=== PATIENT | female | born 2000 | race Asian ===

== ENCOUNTER 2022-04-21 11:33 | Outpatient (CLI) | payer OTHER | END 2022-04-21 11:34 | disposition home or self-care (01) | LOC: SCSMRI 11:33 | PROVIDERS: ATTEND Orthopaedic Surgery | DX: M76.51 Patellar tendinitis, right knee (principal) ==

== ENCOUNTER 2023-11-15 08:26 | Outpatient (CLI) | payer OTHER | END 2023-11-15 08:27 | disposition home or self-care (01) | LOC: CT 08:26 | PROVIDERS: ATTEND Surgery | DX: S02.0XXS Fracture of vault of skull, sequela (principal); G93.89 Other specified disorders of brain | CPT/HCPCS: 70450 ==